=== PATIENT | female | born 1930 | race Caucasian/White ===

== ENCOUNTER 2017-06-25 11:22 | Inpatient (IN) | payer OTHER, BC ==
--- NOTE | 2017-06-25 11:28 | EDPHY ---
H & P HPI/ROS: Chief Complaint: Weakness HPI: 87-year-old woman with no significant past medical history is being brought into the emergency department for 4-5 days of weakness and general malaise. Family checked on her today and she was not feeling well. EMS was called. They performed a 12 lead ECG in noted significant elevations in 2 3 in AVF with reciprocal changes. The patient denies any chest pain. She does have back pain but this is her chronic. No recent falls or other injuries. No vomiting. Patient brought in as a cardiac alert. ROS: 10 point Review of Systems is negative except as noted in the HPI. PMH: None Medications: Aspirin Allergies: Denies Social History: No smoking, no alcohol, no recreational drug use Family History: non-contributory Physical Exam: Gen: Awake, Alert, No Distress HEENT: Nose: no rhinorrhea Eyes: PERRLA, EOMI Mouth: Moist mucosa Neck: Supple, there is significant JVD Chest: nontender, lungs clear to auscultation Heart: 4/6 systolic murmur Abd: Soft, non-tender, no guarding Back: no CVA tenderness, no midline tenderness Ext: no edema, non-tender Skin: no rash Neuro: CN II-XII intact, Sensation grossly intact, Strength 5/5 in bilateral upper and lower extremities Constitutional: Initial Vital Signs Temperature (C) 36.9 C 06/25/17 11:26 Heart Rate 84 06/25/17 11:26 Respiratory Rate 18 06/25/17 11:26 Blood Pressure 118/54 L 06/25/17 11:26 O2 Sat (%) 94 06/25/17 11:26 O2 Delivery Mode Room Air Allergies/Adverse Reactions: No Known Allergies Allergy (Unverified 06/25/17 11:32) Home Medications: Medication Instructions Recorded NK [No Known Home Meds] 06/25/17 Medical Decision Making - Diagnostics EKG Interpretation: ECG time 11:26 a.m.. Sinus rhythm with a rate of 88, there is acute ST elevations in leads to 3 in AVF with depressions in V2 to lead 1 and aVL consistent with acute SD. ED Course/Re-evaluation: Patient arrived as a cardiac alert. There is no IV access at this time. Field ECGs confirm inferior STEMI. Dr. Devine at the bedside. Departure - Departure Disposition: [facility] Inpatient Acute Clinical Impression: STEMI (ST elevation myocardial infarction) Condition: Critical Referrals: Patient,NotPresent [Unknown] - As per Instructions
[2017-06-25 11:34] VITALS: BP 118/54; RESP 18; TEMP 98.4
[2017-06-25] MEDS ORDERED: ASPIRIN 81 MG CHEWABLE TAB PO ONE (11:41)
[2017-06-25] MEDS ORDERED: NS 1,000 ML IV ONE ×3 (11:41→13:30)
[2017-06-25] MEDS ORDERED: LIDOCAINE 1% 300 MG/30 ML SDV ONE (11:48)
[2017-06-25] MEDS ORDERED: VERAPAMIL 5 MG/2 ML VIAL ONE (11:48)
[2017-06-25] MEDS ORDERED: IOPAMIDOL (ISOVUE-370) 150 ML BTL IV ONE (11:49)
[2017-06-25] MEDS ORDERED: HEPARIN 10,000 UNIT/10 ML MDV ONE ×3 (11:49→13:13)
[2017-06-25] MEDS ORDERED: fentaNYL 100 MCG/2 ML INJ ONE ×3 (11:50→13:03)
[2017-06-25] MEDS ORDERED: MIDAZOLAM 2 MG/2 ML VIAL ONE ×2 (11:51→13:20)
[2017-06-25 12:22] VITALS: PULSE 88; O2SAT 96
--- NOTE | 2017-06-25 12:36 | GHP ---
[f rep st] HISTORY AND PHYSICAL DATE OF ADMISSION: 06/25/2017 HISTORY OF PRESENT ILLNESS: The patient was brought as a cardiac alert from her home. She was found there today by her children in bed unable to get up. On arrival of the paramedics, her blood pressu re was 80 over palpable. EKG showed acute ST elevation inferior leads and [facility] On my arrival, the patient was lying flat. She was having chronic back pain and felt overall weak and fatigued, but was having no active chest pain. She was having no nausea or vom iting. She had no diaphoresis. Her illness began a week ago, last Monday. She thought it was the f александр with general malaise and inability to get out of bed. She has not been eating or drinking properl y. On my arrival, she had full neck veins. Examination revealed a holosystolic loud murmur consiste nt with either a ventricular septal defect or acute papillary muscle rupture in the setting of an acu te ST-segment elevation ND. An acute echocardiogram was ordered which confirms a ventricular septal defect that is quite large and akinetic right ventricle in the setting of delayed presentation for an acute IMI. I have discussed the seriousness of this with the patient and her family. At this point , she is considering emergency surgery. I have contacted Dr. Jennings, who was on his way. At this poi nt, she is not having PND or orthopnea. She has not had syncope or near syncope. PAST MEDICAL HISTORY: None. PAST SURGICAL HISTORY: None. The last time she was in the hospital was with 2 live child births. CARDIAC RISK: No history of tobacco, hypertension, diabetes, hyperlipidemia. FAMILY HISTORY: Irrelevant. REVIEW OF SYSTEMS: Is positive for general malaise over 1 week. She has had no fever or chills. Sh e has had no abdominal pain, diarrhea or constipation. She has chronic back pain not associated with other abnormalities. She denies dysuria. She has had no bruising or bleeding. She has had no sarah temesis, melena or hemoptysis. PHYSICAL EXAMINATION: GENERAL: On my arrival, this is an acutely ill, cyanotic female with blue toe s and blue lips. HEENT: She had no conjunctival injection. Oropharynx was clear. NECK: Showed JV P to the angle of the jaw. CHEST: Clear. CARDIAC: Palpation of the anterior chest wall revealed n o thrill. She has a regular rhythm with a holosystolic systolic murmur. ABDOMEN: Soft with good edith wel sounds. I cannot appreciate any organomegaly. EXTREMITIES: Free of edema. There is no clubbin g or cyanosis. Pedal pulses were not palpable. NEUROLOGIC: She is alert and oriented and appropria tely responsive. She has no facial droop. She is moving extremities well. DATA: Echocardiogram reviewed primarily showing a large ventricular septal defect and akinetic right ventricle. Normal left ventricular systolic function. Mitral valve is intact. EKG shows acute ST elevation in inferior leads with reciprocal ST depression. IMPRESSION: Late presentation of acute inferior wall myocardial infarction complicated by a right ve ntricular infarction, ventricular septal defect. RECOMMENDATIONS: Are for emergent repair of the ventricular septal defect associated with revascular ization. Other options would be medical therapy with palliative care. Her family is discussing thes e options. Dr. Jennings will give a surgical opinion about candidacy. Based on no past medical history , I think she would be an excellent candidate. She is vital and active until this acute illness. Qu estions were answered. If she decides to go for surgery, we will plan for urgent diagnostic angiogra m to guide revascularization. Risks and benefits of this were discussed with the patient and family. /[id number]/MODL
[2017-06-25] MEDS ORDERED: MANNITOL 25% 12.5 GM/50 ML VIAL IVP ONE ×2 (12:59→13:30)
[2017-06-25] MEDS ORDERED: ATROPINE SULFATE 1 MG/10 ML SYR IVP PRN (12:59)
[2017-06-25] MEDS ORDERED: ONDANSETRON 4 MG/2 ML VIAL IVP PRN (12:59)
[2017-06-25] MEDS ORDERED: INSULIN REGULAR HUMAN 100 UNIT in NS 100 ML IV ONE ×2 (12:59→13:30)
[2017-06-25] MEDS ORDERED: NITROGLYCERIN 0.4 MG BTL SL PRN (12:59)
[2017-06-25] MEDS ORDERED: ceFAZolin 2 GM/SWFI 2 GM/20 ML SYR IVP ONE ×2 (12:59→13:30)
[2017-06-25] MEDS ORDERED: LIDOCAINE 1% 5 ML SDV ID PRN ×2 (12:59→13:30)
[2017-06-25] MEDS ORDERED: AMINOCAPROIC ACID 5 GM/20 ML VIAL IV ONE ×2 (12:59→13:30)
[2017-06-25] MEDS ORDERED: NOREPINEPHRINE BITARTRATE 16 MG in NS 250 ML IV ONE ×2 (12:59→13:30)
[2017-06-25] MEDS ORDERED: CITRATE DEXTROSE SOLN 500 ML BAG MISC ONE ×2 (12:59→13:30)
[2017-06-25] MEDS ORDERED: MUPIROCIN 2% 22 GM OINT NS ONE (12:59)
[2017-06-25] MEDS ORDERED: PHENYLEPHRINE HCL 50 MG in NS 250 ML IV ONE ×2 (12:59→13:30)
[2017-06-25] MEDS ORDERED: VERAPAMIL 5 MG, NITROGLYCERIN 2.5 MG, HEPARIN 500 UNIT, SODIUM BICARBONATE 0.2 MEQ in L... MISC ONE ×2 (12:59→13:30)
[2017-06-25] MEDS ORDERED: DOBUTamine/DEXTROSE 250 ML IV SCH (13:00)
[2017-06-25] MEDS ORDERED: NOREPINEPHRINE/NS 500 ML IV SCH (13:00)
[2017-06-25 13:06] LABS: PLATELET COUNT 276 10^3/uL (150-400)
[2017-06-25] MEDS ORDERED: DOPamine/DEXTROSE/250 ML BAG IV ONE (13:08)
[2017-06-25] MEDS ORDERED: PROTAMINE SULFATE 50 MG/5 ML VIAL IVP ONE ×2 (13:09→18:46)
[2017-06-25] MEDS ORDERED: POTASSIUM Cl (KCl) 20 MEQ/50 ML BAG IV ONE (13:09)
[2017-06-25] MEDS ORDERED: MILRINONE/DEXTROSE/100 ML BAG IV ONE (13:09)
[2017-06-25] MEDS ORDERED: CALCIUM CHLORIDE 1 GM/10 ML INJ ONE ×2 (13:09→13:12)
[2017-06-25] MEDS ORDERED: NA BICARBONATE 50 MEQ/50 ML VIAL ONE ×2 (13:10→18:27)
[2017-06-25] MEDS ORDERED: niCARdipine/NACL/200 ML BAG IV ONE (13:10)
[2017-06-25] MEDS ORDERED: AMIODARONE HCL 150 MG/3 ML VIAL ONE ×2 (13:10→13:13)
[2017-06-25] MEDS ORDERED: AMINOCAPROIC ACID 5 GM/20 ML VIAL ONE ×2 (13:10→13:12)
[2017-06-25 13:11] LABS: INR 1.27 (0.83-1.16); PROTIME(PATIENT) 15.9 SEC (12.0-15.0)
[2017-06-25] MEDS ORDERED: ADENOSINE 6 MG/2 ML VIAL ONE (13:11)
[2017-06-25] MEDS ORDERED: ceFAZolin 1 GM VIAL ONE (13:11)
--- NOTE | 2017-06-25 13:11 | PDDXCAT ---
Diagnostic Cath Note - . Date: 06/25/17 Gun Stock Checker: Nilson Indication: other (Cardiogenic shock with large VSD in the setting of STEMI late presentation) - Procedure Access: right groin Procedure: left heart catheterization, coronary angiography, left ventriculogram , right heart catheterization - Materials Left Heart Cath size: 6F Left Heart Cath materials: standard multipack (JL4, JR4, pigtail) - Findings-Left Heart Catheterization LM: unobstructed LAD: diffuse luminal irregularities up to 50%. No focal stenosis LCX: unobstructed RCA: 100% occluded TOBY 1 flow EDP: 25 mmHg LVEF: 50% by echo Wall motion: left to right shunt with RV akinesis - Findings-Right Heart Catheterization RA: 35 mmHg RV: 50/35 mmHg PAOP: 25 mHg Complications: none Estimated blood loss: <50ml Assessment: Thrombotic occlusion of the RCA. TOBY 1 flow. Preserved LV function. Late presentation with acute inferior VSD. RV akinesis. Plan: High morbidity/mortality with any approach. Patient was independent with excellent quality. She has no other medical issues on no medications. While high risk, I strongly recommend emergency repair of VSD and revascularization if possible. RV recovery will be the ortiz to success. Discussed with family and Dr. Jennings. Patient Problems: Problems Problem Status Onset VSD (ventricular septal defect) Acute Cardiogenic shock Acute STEMI (ST elevation myocardial infarction) Acute
[2017-06-25] MEDS ORDERED: LIDOCAINE 2% 100 MG/5 ML SYR ONE (13:12)
[2017-06-25] MEDS ORDERED: ALBUMIN 5% 250 ML BOTTLE IV ONE (13:12)
[2017-06-25] MEDS ORDERED: CITRATE DEXTROSE SOLN 500 ML BAG ONE (13:13)
[2017-06-25] MEDS ORDERED: MAGNESIUM SULFATE 1 GM/2 ML VIAL ONE (13:13)
[2017-06-25] MEDS ORDERED: methylPREDNISolone SOD SUCC 1 GM/8 ML VIAL ONE (13:13)
[2017-06-25] MEDS ORDERED: SODIUM BICARBONATE 20 MEQ, LIDOCAINE 1% 10 ML in NORMOSOL-R 1,000 ML MISC ONE (13:30)
[2017-06-25 13:49] LABS: CREATINE KINASE 389 IU/L (0-156)
--- NOTE | 2017-06-25 15:04 | PDANEPAE ---
ANE History of Present Illness pt present with acute VSD rupture, s/p IN and cardiogenic shock. limited history in emergency situation with patient minimally responsive ANE Past Medical History - Cardiovascular History Hx Hypertension: No Hx Arrhythmias: No Hx Chest Pain: No Hx Coronary Artery / Peripheral Vascular Disease: No Hx CHF / Valvular Disease: No Hx Palpitations: No - Pulmonary History Hx COPD: No Hx Asthma/Reactive Airway Disease: No Hx Recent Upper Respiratory Infection: No Hx Oxygen in Use at Home: No Hx Sleep Apnea: No - Endocrine History Hx Diabetes: No ANE Review of Systems Review of Systems: ANE Patient History - Allergies Allergies/Adverse Reactions: No Known Allergies Allergy (Unverified 06/25/17 11:32) - Home Medications Home medications: home medication list seen and reviewed Home Medications: Aspirin [Aspirin 81mg (*)] 81 mg PO DAILY 06/25/17 [Last Taken 06/25/17] - NPO status NPO Status: no food or drink >8 hours NPO Since - Liquids (Date): 06/25/17 NPO Since - Liquids (Time): 09:00 NPO Since - Solids (Date): 06/25/17 NPO Since - Solids (Time): 09:00 - Smoking Hx Smoking Status: Never smoked ANE Labs/Vital Signs - Labs Result Diagrams: 06/25/17 12:55 06/25/17 11:43 - Vital Signs Blood Pressure: 118/54 Heart Rate: 88 Respiratory Rate: 18 O2 Sat (%): 96 Height: 157.48 cm Weight: 58.967 kg ANE Physical Exam - Airway Neck exam: FROM Mallampati Score: Class 1 Mouth exam: normal dental/mouth exam - Cardiovascular Cardiovascular: regular rate and rhythym, systolic murmur, JVD - ASA Status ASA Status: V, E ANE Anesthesia Plan Anesthesia Plan: general endotracheal anesthesia Lines/Monitors: central line, QUEENIE Urgent/Emergent Case: Mitch santana completed preop but documented later for safe timely pt care
--- NOTE | 2017-06-25 15:35 | CPEKG ---
Heart Rate: 88 RR Interval: 682 P-R Interval: 140 QRSD Interval: 84 QT Interval: 356 QTC Interval: 431 P [place]: 51 QRS [place]: 22 T Wave [place]: 115 EKG Severity - ABNORMAL ECG - EKG Impression: SINUS RHYTHM EKG Impression: VENTRICULAR PREMATURE COMPLEX EKG Impression: INFERIOR INFARCT, ACUTE Preliminary Awaiting MD Review
[2017-06-25] MEDS ORDERED: D50W 25 GM/50 ML SYR IVP PRN (19:30)
[2017-06-25] MEDS ORDERED: HYDROCODONE/APAP 5/325 TAB PO PRN (19:30)
[2017-06-25] MEDS ORDERED: SODIUM CL NASAL 45 ML BTL EACHNARE PRN (19:30)
[2017-06-25] MEDS ORDERED: NS 1,000 ML IV SCH (19:30)
[2017-06-25] MEDS ORDERED: POTASSIUM Cl (KCl) 50 ML IV PRN (19:30)
[2017-06-25] MEDS ORDERED: ONDANSETRON DISINTEGRATING 4 MG TAB PO PRN (19:30)
[2017-06-25] MEDS ORDERED: PANTOPRAZOLE SODIUM 40 MG VIAL IVP SCH (19:30)
[2017-06-25] MEDS ORDERED: LACTULOSE 20 GM/30 ML UDCUP PO PRN (19:30)
[2017-06-25] MEDS ORDERED: MEPERIDINE 25 MG/ML SYR IVP PRN (19:30)
[2017-06-25] MEDS ORDERED: INSULIN REGULAR HUMAN 100 UNIT in NS 100 ML IV SCH (19:30)
[2017-06-25] MEDS ORDERED: ALBUMIN 5% 250 ML IV PRN (19:30)
[2017-06-25] MEDS ORDERED: MAGNESIUM SULF 2 GM/WATER 50 ML IV ONE (19:30)
[2017-06-25] MEDS ORDERED: CEPACOL LOZENGE PO PRN (19:30)
[2017-06-25] MEDS ORDERED: POLYETHYLENE GLYCOL 3350 17 GM PKT PO PRN (19:30)
[2017-06-25] MEDS ORDERED: METOCLOPRAMIDE 10 MG/2 ML VIAL IVP PRN (19:30)
[2017-06-25] MEDS ORDERED: ACETAMINOPHEN 325 MG TAB PO PRN (19:30)
[2017-06-25] MEDS ORDERED: fentaNYL 100 MCG/2 ML INJ IVP PRN (19:30)
[2017-06-25] MEDS ORDERED: BISACODYL 10 MG SUPP PR PRN (19:30)
[2017-06-25] MEDS ORDERED: MAGNESIUM HYDROXIDE 30 ML UDCUP PO PRN (19:30)
[2017-06-25] MEDS ORDERED: ACETAMINOPHEN 650 MG SUPP PR PRN (19:30)
--- NOTE | 2017-06-25 20:07 | POSTANESTH ---
Post Anesthetic Evaluation Cardiovascular Status: Other, See Comment (pt family at bedside) Respiratory Status: Other, See Comment Level of Consciousness/Mental Status: Other, See Comment Pain Control: Adequate, Prn Tx Ordered Nausea/Vomiting Control: Adequate, Prn Tx Ordered Complications Possibly Related to Anesthesia: None Noted Notes: pt , unable to maintain BP despite max inotropic/vasopressor support and IABP s/p VSD repair for ruptured VSD post infarct. Family at bedside
[2017-06-25] MEDS ORDERED: MUPIROCIN 2% 1 APP/GM OINT *BID NS SCH (21:00)
[2017-06-25] MEDS ORDERED: CHLORHEXIDINE GLUC HIBICLENS 118 ML BTL TP SCH (21:00)
[2017-06-25] MEDS ORDERED: MUPIROCIN 2% 22 GM OINT NS SCH ×2 (21:00)
[2017-06-25] MEDS ORDERED: SENNOSIDES/DOCUSATE SODIUM TAB PO SCH (21:00)
--- NOTE | 2017-06-25 21:03 | GOP ---
[f rep st] OPERATIVE REPORT DATE OF OPERATION: 06/25/2017 SURGEON: Ronald Jennings DO [employer] SALES REPRESENTATIVE: Nicola Orantes PA-C ANESTHESIOLOGIST: Alexander Sommers MD. PREOPERATIVE DIAGNOSIS: 1. Cardiogenic shock with the inferior wall and right ventricular infarction. 2. Acute ventricular septal defect with class IV congestive heart failure. POSTOPERATIVE DIAGNOSIS: 1. Cardiogenic shock with the inferior wall and right ventricular infarction. 2. Acute ventricular septal defect with class IV congestive heart failure. PROCEDURE PERFORMED: 1. Emergent closure of ventricular septal defect with pericardial patch to the ventricular septum an d left ventricular free wall. 2. Right common femoral artery intra-aortic balloon pump. FINDINGS: The patient was found down at home, was brought to the ER, was found to be in shock, altho ugh able to somewhat vocalize. Family was present. Echo confirmed suspicion of acute VSD. She had inferior wall akinesis and inferior wall changes on EKG including Q-waves. She had had a 5-day histo ry of feeling poorly. QUEENIE confirmed a mid-basilar large VSD with RV distention and hypermobility. T he concern was whether this was RV infarct versus just overdistention of the RV due to the acute natu re. The left coronary system had moderate, but nonobstructive, disease. RCA was occluded at its ginette gin. The patient's family was advised that this was a terminal event, that her opportunity was with surgery. Despite her age, she was an independent living, functioning, very healthy and active 87-yea r-old woman. The patient and family verbalized the desire to make every effort and accepted any post operative procedures necessary to achieve that end. Family was consented for surgery. DESCRIPTION OF PROCEDURE: She was brought to the operating room from the senior laboratory technician, intubated. Monit oring lines were placed. She was prepped and draped in sterile classical manner, include including T EE. A sternotomy was performed and the right heart was markedly distended and akinetic and tense. C CR[employer] PREVENTION WORKER was in excess of 30. 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 After bicaval cannulation was performed, cardiopulmonary b ypass was begun. Cross-clamp was applied and cardioplegic arrest was obtained antegrade. We then li fted the apex of the heart up out of the chest and found that the posterior wall was entirely infarct ed, as was the right ventricular free wall. We opened the infarct lateral to the septum for approxim ately 8 or 10 cm. An irregular defect approximately thumb-sized was noted, with indistinct margins a t the mid-septal portion. Therefore, the infarct was opened all the way to the apex. We then placed interrupted 3-0 Prolene sutures with felt on the right ventricular side, as well as of the defect, a s well as externally through the right ventricular free wall, in order to place a patch. A pericardi al patch was sewn was sewn in place. Knots were secured. The tissue was very friable and it appeare d that the entire septum was infarcted, at least inferiorly. As far as I could see, the papillary mu scle was also infarcted, although preoperative mitral regurgitation was only aith-du-zktsondt. The p apillary muscle was avoided. The closure appeared to be strong. We then fashioned a pericardial pat ch with felt reinforcement on the inside and outside, closing the left ventricular defect, securing i t to the patch as well. Prior to doing that, I took an additional piece of pericardium and did a con tinuous running 5-0 Prolene infarct exclusion patch of pericardium over the entire septum, as far as I could see, to prevent hopefully any further VSDs from forming. This was included in the LV patch. BioGlue was used to reinforce. The cross-clamp was then removed with suction on the ascending aorti c vent and LV sump. We then tested the ventricle. There were several sites that were oozing in betw een the sutures, and these were reinforced with Prolene and felt. We were satisfied that the inferio r wall was secured. We then weaned the patient multiple times from bypass. However, the right ventr icular free wall never did recover, or never did beat even pre-pump. Multiple inotropes and a balloo n pump were placed. We were able to wean the patient, who was then hemodynamically unstable, after a llowing her to rest on pump for several hours. I have made the decision pre-procedure not to place a n RVAD and discuss that with the patient and her family, who was adamant that they did not want any s ort of artificial heart support. I felt that in the face of infarct, if she did not recover now, gregory t she would not recover with an RVAD, particularly in an 87-year-old woman. She remained hemodynamic ally unstable. Transesophageal echo showed a faint blush of color going across at the edge of the pa tch, which was likely due to the repair sites through very friable, infarcted muscle. No infarctecto my could be contemplated since the majority of the septum was apparently out, and it was a very fresh infarct. We did not feel that this was hemodynamically significant. The PA pressures and right atr ial pressures remained lower and palpably normal after coming off pump. An echo of the left ventricl e appeared to be moving adequately. However, the right ventricle did not move whatsoever. Initially , closing the chest met with hemodynamic instability. We therefore we opened the chest and left her packed open with a return to ICU in critical condition. It should be noted a balloon pump had been p laced in the right groin after initial failure to come off bypass and confirmed with transesophageal echo for placement. Three Blakes were placed, the chest was packed, and dressings were applied over the open chest. The sternum was not brought together. /[id number]/MODL
[2017-06-25] MEDS ORDERED: ceFAZolin 2 GM/DEXTROSE 100 ML IV SCH (22:00)
[2017-06-26] MEDS ORDERED: ASPIRIN 81 MG CHEWABLE TAB PO SCH (09:00)
--- NOTE | 2017-06-27 11:17 | ECHO ---
[email or web address] [address] [address] Main: [phone] Fax: Transthoracic Echocardiogram Name: KURT AYOUB MR#: [id number] Study Date: 06/25/2017 Study Time: 11:59 AM Date of : 1930 Age: 87 year(s) Height: ( ) Weight: ( ) BSA: Gender: Female Examination: Echo Indication: Murmur/ID Image Quality: Contrast: Requested by: Toni Devine BP: / Heart Rate: Rhythm: Indication: Murmur/ID Procedure Staff Chemical Project Engineer: Berta Lopez Reading Physician: Toni Devine Requesting Provider: Conclusions: Normal size left ventricle. Global hypercontractility of the left ventricle. Regional wall motion abnormality noted. The left atrium is mildly dilated. The right atrium is mildly to moderately dilated. Mild mitral valve regurgitation is present. Moderate tricuspid regurgitation is present. Normal LV size with ef of 70% and inferior akinesis. RV akinesis with large VSD.Inferior wall akinesis. 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 Measurements: Chambers Valvular Assessment AV/MV Valvular Assessment TV/PV Normal Normal Normal Name Value Range Name Value Range Name Value Range AV Vmax: 1.26 m/s (1 m/s-1.7 TR Vmax: 2.70 mm/s ( - ) m/s) TR PGmax: 29 mmHg ( - ) AV maxP mmHg ( - ) syst. PAP: 39 mmHg ( - ) MV E Vmax: 1.30 m/s ( - ) MV A Vmax: 0.72 m/s ( - ) MV E/A: 1.81 ( - ) Continued Measurements: Chambers Valvular Assessment AV/MV Valvular Assessment TV/PV Name Value Name Value Name Value LADs Lon.3 cm MV E/E' Septal: 36.00 CVP (est.): 10 mmHg LA Area: 18.8 cm2 MV E/E' Lateral: 16.30 Patient: KURT AYOUB Study Date: 06/25/2017 Page 1 of 2 11:59 AM Findings: Left Ventricle: Normal size left ventricle. No LV hypertrophy. Global hypercontractility of the left ventricle. Regional wall motion abnormality noted. Right Ventricle: Upper normal size right ventricle. Severely reduced RV function. Left Atrium: The left atrium is mildly dilated. Right Atrium: The right atrium is mildly to moderately dilated. Mitral Valve: The mitral valve is normal in appearance and function. Mild mitral valve regurgitation is present. Aortic Valve: Mild aortic cusp calcification is noted. Tricuspid Valve: The tricuspid valve is normal in appearance and function. Moderate tricuspid regurgitation is present. The pulmonary artery pressure is normal. Pulmonic Valve: The pulmonic valve is normal in appearance and function. Mild pulmonic valve regurgitation is noted. Aorta: The aorta is normal. Pericardium: No pericardial effusion. Left side pleural effusion. 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 . (No Signature Object) Patient: KURT AYOUB Study Date: 06/25/2017 Page 2 of 2 11:59 AM [id number]
--- NOTE | 2017-06-27 11:17 | ECHO ---
[email or web address] [address] [address] Main: [phone] Fax: Transthoracic Echocardiogram Name: KURT AYOUB MR#: [id number] Study Date: 06/25/2017 Study Time: 11:59 AM Date of : 1930 Age: 87 year(s) Height: ( ) Weight: ( ) BSA: Gender: Female Examination: Echo Indication: Murmur/MA Image Quality: Contrast: Requested by: Toni Devine BP: / Heart Rate: Rhythm: Indication: Murmur/MA Procedure Staff Quality Control Lead: Berta Lopez Reading Physician: Toni Devine Requesting Provider: Conclusions: Normal size left ventricle. Global hypercontractility of the left ventricle. Regional wall motion abnormality noted. The left atrium is mildly dilated. The right atrium is mildly to moderately dilated. Mild mitral valve regurgitation is present. Moderate tricuspid regurgitation is present. Normal LV size with ef of 70% and inferior akinesis. RV akinesis with large VSD.Inferior wall akinesis. 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 Measurements: Chambers Valvular Assessment AV/MV Valvular Assessment TV/PV Normal Normal Normal Name Value Range Name Value Range Name Value Range AV Vmax: 1.26 m/s (1 m/s-1.7 TR Vmax: 2.70 mm/s ( - ) m/s) TR PGmax: 29 mmHg ( - ) AV maxP mmHg ( - ) syst. PAP: 39 mmHg ( - ) MV E Vmax: 1.30 m/s ( - ) MV A Vmax: 0.72 m/s ( - ) MV E/A: 1.81 ( - ) Continued Measurements: Chambers Valvular Assessment AV/MV Valvular Assessment TV/PV Name Value Name Value Name Value LADs Lon.3 cm MV E/E' Septal: 36.00 CVP (est.): 10 mmHg LA Area: 18.8 cm2 MV E/E' Lateral: 16.30 Patient: KUTR AYOUB Study Date: 06/25/2017 Page 1 of 2 11:59 AM Findings: Left Ventricle: Normal size left ventricle. No LV hypertrophy. Global hypercontractility of the left ventricle. Regional wall motion abnormality noted. Right Ventricle: Upper normal size right ventricle. Severely reduced RV function. Left Atrium: The left atrium is mildly dilated. Right Atrium: The right atrium is mildly to moderately dilated. Mitral Valve: The mitral valve is normal in appearance and function. Mild mitral valve regurgitation is present. Aortic Valve: Mild aortic cusp calcification is noted. Tricuspid Valve: The tricuspid valve is normal in appearance and function. Moderate tricuspid regurgitation is present. The pulmonary artery pressure is normal. Pulmonic Valve: The pulmonic valve is normal in appearance and function. Mild pulmonic valve regurgitation is noted. Aorta: The aorta is normal. Pericardium: No pericardial effusion. Left side pleural effusion. 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 . (No Signature Object) Patient: KURT AYOUB Study Date: 06/25/2017 Page 2 of 2 11:59 AM [id number]
--- NOTE | 2017-06-27 11:17 | ECHO ---
[email or web address] [address] [address] Main: [phone] Fax: Transthoracic Echocardiogram Name: KURT AYOUB MR#: [id number] Study Date: 06/25/2017 Study Time: 11:59 AM Date of : 1930 Age: 87 year(s) Height: ( ) Weight: ( ) BSA: Gender: Female Examination: Echo Indication: Murmur/NE Image Quality: Contrast: Requested by: Toni Devine BP: / Heart Rate: Rhythm: Indication: Murmur/NE Procedure Staff Liability Claims Manager: Berta Lopez Reading Physician: Toni Devine Requesting Provider: Conclusions: Normal size left ventricle. Global hypercontractility of the left ventricle. Regional wall motion abnormality noted. The left atrium is mildly dilated. The right atrium is mildly to moderately dilated. Mild mitral valve regurgitation is present. Moderate tricuspid regurgitation is present. Normal LV size with ef of 70% and inferior akinesis. RV akinesis with large VSD.Inferior wall akinesis. 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 Measurements: Chambers Valvular Assessment AV/MV Valvular Assessment TV/PV Normal Normal Normal Name Value Range Name Value Range Name Value Range AV Vmax: 1.26 m/s (1 m/s-1.7 TR Vmax: 2.70 mm/s ( - ) m/s) TR PGmax: 29 mmHg ( - ) AV maxP mmHg ( - ) syst. PAP: 39 mmHg ( - ) MV E Vmax: 1.30 m/s ( - ) MV A Vmax: 0.72 m/s ( - ) MV E/A: 1.81 ( - ) Continued Measurements: Chambers Valvular Assessment AV/MV Valvular Assessment TV/PV Name Value Name Value Name Value LADs Lon.3 cm MV E/E' Septal: 36.00 CVP (est.): 10 mmHg LA Area: 18.8 cm2 MV E/E' Lateral: 16.30 Patient: KURT AYOUB Study Date: 06/25/2017 Page 1 of 2 11:59 AM Findings: Left Ventricle: Normal size left ventricle. No LV hypertrophy. Global hypercontractility of the left ventricle. Regional wall motion abnormality noted. Right Ventricle: Upper normal size right ventricle. Severely reduced RV function. Left Atrium: The left atrium is mildly dilated. Right Atrium: The right atrium is mildly to moderately dilated. Mitral Valve: The mitral valve is normal in appearance and function. Mild mitral valve regurgitation is present. Aortic Valve: Mild aortic cusp calcification is noted. Tricuspid Valve: The tricuspid valve is normal in appearance and function. Moderate tricuspid regurgitation is present. The pulmonary artery pressure is normal. Pulmonic Valve: The pulmonic valve is normal in appearance and function. Mild pulmonic valve regurgitation is noted. Aorta: The aorta is normal. Pericardium: No pericardial effusion. Left side pleural effusion. 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 . (No Signature Object) Patient: KURT AYOUB Study Date: 06/25/2017 Page 2 of 2 11:59 AM [id number]
== END 2017-06-25 19:57 | disposition expired | DRG 229 ==
LOC: EDUNIT# → F2N 19:41
PROVIDERS: ADMIT Internal Medicine Interventional Cardiology; ATTEND Internal Medicine Interventional Cardiology
PROC: 5A1221Z Performance of Cardiac Output, Continuous (ICD-10-PCS; principal; 2017-06-25 13:08)
PROC: 5A02210 Assistance with Cardiac Output using Balloon Pump, Continuous (ICD-10-PCS; principal; 2017-06-25 13:08)
PROC: B246ZZ4 Ultrasonography of Right and Left Heart, Transesophageal (ICD-10-PCS; principal; 2017-06-25 13:08)
PROC: 02UM0JZ Supplement Ventricular Septum with Synthetic Substitute, Open Approach (ICD-10-PCS; principal; 2017-06-25 13:08)
CPT/HCPCS: C1725; C1763; C1768; J0153; J0171; J0282; J0690; J1250; J1265; J1644; J1815; J2001; J2150; J2250; J2260; J2370; J2720; J2930; J3010; J7060; P9016; P9017; P9035; P9041; Q9967